=== PATIENT | female | born 1950 | race Caucasian/White ===

== ENCOUNTER → 2020-02-15 | Outpatient (CLI) | payer MEDICARE, MEDICAID ==
[~2020-02-15] MED LIST: ASPIRIN 81M81 MG/TA2 PO; AUGMENTIN 400100 ML PO; COLACE 100100 MG/CAP PO; LEXAPRO 10MG10 MG PO; LOPRESSOR 550 MG/TAB PO; LORTAB ELIX0.5 MG/ML PO; MEGACE ORAL40 MG/ML PO; MIRTAZAPINE7.5 MG PO; PRINIVIL10 MG PO; SENOKOT S 50 MG1 TAB PO
== END ==
LOC: MC.RAD 13:50
DX: N60.01 Solitary cyst of right breast (principal)

== ENCOUNTER 2022-08-06 21:06 | Inpatient (IN) | payer MEDICARE, MEDICAID ==
[~2022-08-06] VITALS: Ht 157.5 cm; Wt 63.2 kg
[2022-08-06 22:32] LABS: MEAN CELL VOLUME 93 fl (80.0-100.0); MEAN CORPUSCULAR HGB CONC 33 g/dl (33.0-37.0); MEAN PLATELET VOLUME 10.2 fl (7.4-10.4); PLATELET COUNT 460 K/mm3 (130-400); RED BLOOD COUNT 3.12 M/mm3 (4.10-5.30); REDCELL DISTRIBUTION WIDTH-CV 15.2 % (11.5-14.5)
[2022-08-06 22:35] LABS: HEMATOCRIT 28.9 % (37.0-47.0); HEMOGLOBIN 9.4 g/dl (12.5-16.0); MEAN CORPUSCULAR HEMOGLOBIN 30 pg (27-31)
[2022-08-06 22:48] LABS: ALANINE AMINOTRANSFERASE 110 U/L (0-55); ALBUMIN 2.7 gm/dL (3.4-4.8); ALKALINE PHOSPHATASE 146 U/L (40-150); ANION GAP 11 mmol/L (7-16); AST,SGOT 54 U/L (5-34); BILIRUBIN,TOTAL 0.5 mg/dL (0.2-1.2); BLOOD UREA NITROGEN 16 mg/dL (10-20); CALCIUM 12.3 mg/dL (8.4-10.2); CARBON DIOXIDE 21 mmol/L (23-31); CHLORIDE 107 mmol/L (98-107); CREATININE, serum 1.01 mg/dL (0.57-1.11); GLUCOSE 138 mg/dL (70-99); INR 1.9 (0.8-3.0); LIPASE 32 U/L (8-78); POTASSIUM 4.3 mmol/L (3.5-4.5); PROTHROMBIN TIME 21.5 SECONDS (9.7-12.8); SODIUM 139 mmol/L (136-145); TOTAL PROTEIN 7.7 gm/dL (6.2-8.1)
[2022-08-06 22:50] LABS: PARTIAL THROMBOPLASTIN TIME 38.5 SECONDS (26.0-37.0)
[2022-08-06 22:50] LABS: COLLECTION METHOD CLEAN CATCH
[2022-08-06 22:55] LABS: TROPONIN-I < 0.010 ng/mL (0.00-0.033)
[2022-08-06 22:58] LABS: URINE APPEARANCE Clear (CLEAR/HAZY); URINE BLOOD TRACE-INTACT (NEGATIVE); URINE COLOR Yellow (YELLOW); URINE GLUCOSE Negative (NEGATIVE); URINE KETONE Negative (NEGATIVE); URINE NITRATE Negative (NEGATIVE); URINE PROTEIN(semi-quant) Negative (NEGATIVE); URINE UROBILINOGEN 0.2 E.U/dL (0.2-1.0)
[2022-08-06 23:11] LABS: SQUAMOUS EPITHELIAL 0-2 /hpf (0-10); URINE BACTERIA Rare /hpf (NONE SEEN); URINE RBC 0-2 /hpf (0-2)
[2022-08-06 23:21] LABS: ANISOCYTOSIS 1+; BAND 6 % (0-10); EOSINOPHIL 1 % (0-4); HYPOCHROMIA 1+; LYMPHOCYTE 23 % (20.0-51.0); NEUTROPHILS 64 % (42.0-75.2); PLATELET ESTIMATE INCREASED (NORMAL)
[2022-08-07] MEDS ORDERED: COZAAR100 MG PO (01:45)
[2022-08-07] MEDS ORDERED: LIPITOR20 MG PO (01:45)
[2022-08-07] MEDS ORDERED: ELIQUIS 5MG PO (01:46)
[2022-08-07 02:35] VITALS: BP 141/77; PULSE 110; TEMP 98.4
--- NOTE | 2022-08-07 04:03 | NUR ---
PATIENT ADMITTED TO THE FLOOR AND AOX4. NEED A UA AND STOOL OCCULT FOR HER. CONTINUES ON ELIQUIS FOR DVT'S/PE'S. NO COUGH NOTED. NO N/V. WILL START NS AT 100ML/HR. GETTING ZOSYN FOR HER DIVERTICULITIS. 1X ASSIST WITH FWW. HAS 5/10 PAIN IN HER ABDOMEN AND LLE. 2-3+ EDEMA OF LLE AND 1+ OF RLE. NO SKIN ISSUES NOTED OTHERWISE. RADIOLOGY CONSULT FOR IVC FILTER PLACEMENT, WILL KEEP NPO AT THIS TIME, DID HAVE A FEW SIPS OF WATER WHEN BROUGHT TO THE FLOOR. CRP- 15.1. CXRAY SHOWED NOTHING ACUTE. CT OF THE ABDOMEN SHOWED DIVERTICULITIS AND A MOD/LARGE HIATAL HERNIA. FALL RISK PROTOCAL. CALL LIGHT IN REACH. BED IN LOWEST POSITION.
[2022-08-07 05:54] LABS: MEAN CELL VOLUME 96 fl (80.0-100.0); MEAN CORPUSCULAR HGB CONC 32 g/dl (33.0-37.0); PLATELET COUNT 460 K/mm3 (130-400); RED BLOOD COUNT 2.74 M/mm3 (4.10-5.30); REDCELL DISTRIBUTION WIDTH-CV 15.1 % (11.5-14.5)
[2022-08-07 05:58] LABS: HEMATOCRIT 26.2 % (37.0-47.0); HEMOGLOBIN 8.3 g/dl (12.5-16.0); MEAN CORPUSCULAR HEMOGLOBIN 30 pg (27-31)
[2022-08-07 06:21] LABS: CALCIUM 11.6 mg/dL (8.4-10.2); CREATININE, serum 0.88 mg/dL (0.57-1.11); POTASSIUM 3.7 mmol/L (3.5-4.5)
[2022-08-07 06:52] LABS: BAND 5 % (0-10); BASOPHIL 1 % (0-2); LYMPHOCYTE 15 % (20.0-51.0); NEUTROPHILS 73 % (42.0-75.2); PLATELET ESTIMATE INCREASED (NORMAL)
[2022-08-07 06:53] LABS: ANISOCYTOSIS 1+; HYPOCHROMIA 2+
[2022-08-07 06:54] LABS: STOMATOCYTE 1+
[2022-08-07 07:56] VITALS: BP 163/74; PULSE 95; TEMP 97.9
--- NOTE | 2022-08-07 08:30 | NUR ---
PATIENT AWAKE AND ALERT, HEPARIN DRIP INFUSING. NS INFUSING. PATIENT RESTING IN BED. CALL LIGHT WITHIN REACH, BED ALARM ON. PATIENT VERBALIZES UNDERSTANDING OF NPO ORDER.
--- NOTE | 2022-08-07 09:00 | NUR ---
FREIGHT [employer]TER ATTEMPTED TO GET ANOTHER IV ACCESS SITE X2 WITH NO SUCCESS. [facility] CALLED AND WERE ABLE TO PLACE A 22G DIFFUSIX TO THE RH. PATIENT HAS FLUIDS, ANTIBIOTICS AND ALSO A HEPARIN DRIP SO ANOTHER IV WAS NEEDED.
--- NOTE | 2022-08-07 09:39 | NUR ---
Initial visit; Patient talked about her health issues with Attending Pathologist who inquired if she has a support system. Shoshana has a large family who live nearby and give her the support she needs. Shoshana was receptive to prayer and later Care Management shared that Shoshana will be transferred for removal of blood clots.
[2022-08-07 11:39] VITALS: BP 159/75; PULSE 91; TEMP 98.1
--- NOTE | 2022-08-07 11:40 | NUR ---
SW met with the patient to discuss discharge plan. The patient was living in alone in [place], but shares that after her operation, her children have been staying with her to help her out. She reports needing some assistance with ADLs and has a walker. She states that her children assist her, when needed. The patient's PCP is Dr. Kvng Hong and she receives her medications from [place] [facility]. The patient's DPOA-HC is in EMR and it designates her daughter, Daisy Aguilar (ph#[phone]). The patient has two other children: Rob and Serenity. They have all been assisting the patient. house admin notified [facility] that the plan is to transfer the patient to [facility] on Wednesday.
[2022-08-07 15:42] VITALS: BP 146/72; PULSE 105; TEMP 97.8
--- NOTE | 2022-08-07 19:40 | NUR ---
REPORT GIVEN TO CRYSTAL MARTIN. ALL QUESTIONS ANSWERED. INFORMED CRYSTAL OSEGUERA RN PATIENTS DAUGHTER (PHONE # AND NAME GIVEN) WOULD LIKE TO BE UPDATED ON WHAT PLANS THEY HAVE AN NO MATTER WHAT TIME WANTS TO BE NOTIFIED IF HER MOTHER IS TO HAVE SURGERY. CALL PLACED TO PATIENTS DAUGHTER. I INFORMED HER PATIENTS LEAVING AT THIS TIME WITH EMS TO CRYSTAL OSEGUERA, AND ALSO PROVIDED HER WITH THE ROOM NUMBER AND PHONE NUMBER FOR THE UNIT HER MOTHER WILL BE ON. PATIETNT LEFT IN STABLE CONDITION.
--- NOTE | 2022-08-07 19:44 | NUR ---
VIRA LEFT VIA EMS IN STABLE CONDITION WITH ALL HER BELONGINGS, PATIENTS DAUGHER NOTIFIED.
== END 2022-08-07 19:00 | disposition short-term general hospital (02) | DRG 392 ==
LOC: COL.ER 21:06 → MEDICAL 08-07 00:54
PROVIDERS: Emergency Medicine; Nurse Practitioner Family; ADMIT Student in an Organized Health Care Education/Training Program
DX: K57.32 Diverticulitis of large intestine without perforation or abscess without bleeding (principal); J21.9 Acute bronchiolitis, unspecified; E87.20 Acidosis, unspecified; I82.422 Acute embolism and thrombosis of left iliac vein; I82.412 Acute embolism and thrombosis of left femoral vein; I82.492 Acute embolism and thrombosis of other specified deep vein of left lower extremity; K44.9 Diaphragmatic hernia without obstruction or gangrene; D50.9 Iron deficiency anemia, unspecified; E83.52 Hypercalcemia; R73.9 Hyperglycemia, unspecified; D72.0 Genetic anomalies of leukocytes; K21.00 Gastro-esophageal reflux disease with esophagitis, without bleeding; I10 Essential (primary) hypertension; E78.5 Hyperlipidemia, unspecified; Z90.49 Acquired absence of other specified parts of digestive tract; Z79.01 Long term (current) use of anticoagulants; Z86.711 Personal history of pulmonary embolism
CPT/HCPCS: J1644; J2543; J7030; Q9967